=== PATIENT | male | born 1975 | race Two or more races ===

== ENCOUNTER 2022-09-11 19:23 | Emergency (ER) | payer OTHER ==
[~2022-09-11] VITALS: Ht 170.2 cm; Wt 109.0 kg
[2022-09-11] MEDS ORDERED: ERY05OO OP (21:39)
[2022-09-11] MEDS ORDERED: FLUORESCEIN SOD OPTH TEST STRIP LEFTEYE ONE (21:45)
[2022-09-11] MEDS ORDERED: TETRACAINE HCL 0.5% OPTH(EYE) SOLN 4ML LEFTEYE ONE (21:45)
[2022-09-11 22:09] VITALS: BP 139/81
== END 2022-09-11 22:06 | disposition home or self-care (01) ==
LOC: ER 19:23
DX: T15.92XA Foreign body on external eye, part unspecified, left eye, initial encounter (principal); I10 Essential (primary) hypertension; E11.9 Type 2 diabetes mellitus without complications; E78.5 Hyperlipidemia, unspecified; Z79.2 Long term (current) use of antibiotics; X58.XXXA Exposure to other specified factors, initial encounter; Y93.89 Activity, other specified; Y92.89 Other specified places as the place of occurrence of the external cause; Y99.8 Other external cause status
CPT/HCPCS: 65222